=== PATIENT | male | born 1990 ===

== ENCOUNTER 2018-01-25 01:30 | Emergency (ER) | payer SELFPAY ==
[2018-01-25 01:46] VITALS: RESP 16; TEMP 98; O2SAT 100
[2018-01-25] MEDS ORDERED: Tetanus/Diphtheria Toxoids 0.5 ml Syringe IM ONE ×2 (03:33→03:41)
[2018-01-25] MEDS ORDERED: Bacitracin 500 Units/gm Oint Foilpak UD ONE (03:39)
--- NOTE | 2018-01-25 03:56 | C.PDOC ---
History Of Present Illness 27 years old male presents to ED with complaints of right 2nd finger bleeding after he cut himself with a knife while cutting lobsters at 8PM today. Denies any other physical complaints. Patient's Tetanus not UTD. Time Seen by Provider: 01/25/18 01:50 Chief Complaint (Nursing): Abnormal Skin Integrity History Per: Patient History/Exam Limitations: no limitations Onset/Duration Of Symptoms: Hrs Current Symptoms Are (Timing): Still Present Location Of Injury: Right: Hand (2nd finger) Quality Of Symptoms: Other (bleeding ) Recent travel outside of the [place]: No Past Medical History Reviewed: Historical Data, Nursing Documentation, Vital Signs Vital Signs: Last Vital Signs Temp 98.0 F 01/25/18 03:56 Pulse 88 01/25/18 03:56 Resp 16 01/25/18 03:56 BP 121/79 01/25/18 03:56 Pulse Ox 100 01/25/18 04:15 - Medical History PMH: No Chronic Diseases Surgical History: No Surg Hx Family History: States: No Known Family Hx - Social History Hx Alcohol Use: Yes Hx Substance Use: No Review Of Systems Constitutional: Negative for: Fever, Chills Skin: Positive for: Other (Cut to right 2nd finger ) Neurological: Negative for: Weakness, Numbness Physical Exam - Physical Exam Appears: Well, Non-toxic, No Acute Distress Skin: Warm, Dry, Other (1.5 Laceration superficial of right 2nd finger at the base; no tenderness, foreign body. ) Eye(s): bilateral: Normal Inspection, PERRL Extremity: Normal ROM, Capillary Refill (< 2 sec), No Deformity, No Swelling Extremity: Bilateral: Normal Color And Temperature, Normal ROM Pulses: Left Radial: Normal, Right Radial: Normal Neurological/Psych: Oriented x3, Normal Motor, Normal Sensation ED Course And Treatment O2 Sat by Pulse Oximetry: 100 (RA) Pulse Ox Interpretation: Normal Progress Note: Administered Tetanus shot. Laceration - Laceration Repair Right 2nd finger Wound Length (In cm): 1.5 Description Of Wound: Linear Wound Cleansed With: Sterile Saline Anesthesia: Lidocaine 1% Wound Examination: Irrigated With Saline, No FB With Wound Exploration, No Tendon Injury With Wound Exploration Wound Closure: Suture (x5) Suture Technique And Material Used: Prolene (4-0) Wound Complexity: Simple (Well tolerated) Disposition Counseled Patient/Family Regarding: Diagnosis, Need For Followup - Disposition Referrals: [facility] at [facility] [Outside] Disposition: HOME/ ROUTINE Disposition Time: 03:54 Condition: STABLE Additional Instructions: Follow wound care instructions May wash wound with mild soap and water Apply bacitracin ointment Suture removal in 10 days Return to ER if worse Instructions: Laceration Repair With Stitches (DC) Forms: [employer] (Setswana) - Clinical Impression Clinical Impression: Finger laceration - PA / CRIMINALIST TECHNICIAN / Resident Statement MD/DO has reviewed & agrees with the documentation as recorded. - Scribe Statement The provider has reviewed the documentation as recorded by the Tameraibradha Holguin All medical record entries made by the Tameraibe were at my direction and personally dictated by me. I have reviewed the chart and agree that the record accurately reflects my personal performance of the history, physical exam, medical decision making, and the department course for this patient. I have also personally directed, reviewed, and agree with the discharge instructions and disposition.
[2018-01-25 03:59] VITALS: BP 121/79; PULSE 88
== END 2018-01-25 04:06 | disposition home or self-care (01) ==
LOC: C.ER 01:30
DX: S61.210A Laceration without foreign body of right index finger without damage to nail, initial encounter (principal); W26.0XXA Contact with knife, initial encounter; Y93.G1 Activity, food preparation and clean up; Y92.89 Other specified places as the place of occurrence of the external cause; Y99.8 Other external cause status; Z23 Encounter for immunization